=== PATIENT | male | born 1955 | race Caucasian/White ===

== ENCOUNTER 2017-10-15 19:19 | Emergency (ER) | payer OTHER ==
--- NOTE | 2017-10-15 20:18 | EDM.PDOC ---
ED HPI GENERAL MEDICAL PROBLEM - General Chief Complaint: Genitourinary Problem Stated Complaint: NOT ABLE TO VOID Time Seen by Provider: 10/15/17 19:25 Source of Information: Reports: Patient History Limitations: Reports: No Limitations - History of Present Illness INITIAL COMMENTS - FREE TEXT/NARRATIVE: According to patient he has not been able to urinate all day today. Last time h had a good act of urination was yesterday. He feels urge to urinate and when he tries to urinate he can only urinate small quantities frequently and he has urge to urinate all the time today. No fever or chills. No back pain. Pt claims his lower abdomen is very painful and cannot stand straight. No nausea of vomiting. Pt claims that he has had similar episodes once before and he had to be catheterized for few days. and his urologist has placed him on flomax. He always had some dribbling of urine and hesitancy. Onset: Today Onset Date: 10/15/17 Onset Time: 08:00 Location: Reports: Abdomen Quality: Reports: Ache Severity: Severe Improves with: Reports: None Worsens with: Reports: None Associated Symptoms: Denies: Confusion, Chest Pain, Cough, Diaphoresis, Fever/ Chills, Nausea/Vomiting, Rash, Seizure, Shortness of Breath, Syncope, Weakness ED ROS GENERAL - Review of Systems Review Of Systems: See Below Constitutional: Denies: Fever, Chills, Malaise, Weakness HEENT: Denies: Throat Pain, Throat Swelling Respiratory: Denies: Shortness of Breath, Wheezing, Pleuritic Chest Pain, Cough , Sputum Cardiovascular: Denies: Chest Pain, Lightheadedness GI/Abdominal: Denies: Abdominal Pain, Nausea, Vomiting : Reports: Frequency, Urinary Retention. Denies: Dysuria, Flank Pain, Hematuria Musculoskeletal: Denies: Joint Pain, Joint Swelling Skin: Denies: Bruising, Pruritis, Rash ED EXAM, GENERAL - Physical Exam Exam: See Below Exam Limited By: No Limitations General Appearance: Alert, WD/WN, Moderate Distress (from distended bladder) Ears: Normal External Exam, Normal Canal, Hearing Grossly Normal, Normal TMs Ear Exam: Bilateral Ear: Auricle Normal, Canal Normal, TM normal Nose: Normal Inspection, Normal Mucosa, No Blood Throat/Mouth: Normal Inspection, Normal Lips, Normal Teeth, Normal Gums, Normal Oropharynx, Normal Voice, No Airway Compromise Head: Atraumatic, Normocephalic Neck: Normal Inspection, Supple, Non-Tender, Full Range of Motion Respiratory/Chest: No Respiratory Distress, Lungs Clear, Normal Breath Sounds, No Accessory Muscle Use, Chest Non-Tender Cardiovascular: Normal Peripheral Pulses, Regular Rate, Rhythm, No Edema, No Gallop, No JVD, No Murmur, No Rub GI/Abdominal: Distended (There is a tense globular mass extending upwards from the suprapubic area into the umbilicus. the mass is tender and tense. Appears like distended bladder) Course - Vital Signs Text/Narrative:: Pt has acute urinary distension from possible prostatic urethral obstruction. As patient has had pervious episode, I did go ahead and catheterized patient, and did drain about 1150cc or clear urine . Pt did have instant relief in his abdominal discomfort. I have applied a thigh bag on patient. Catheter education given to patient. Advised not to remove the catheter until he is back with his primary care early next week. Continue home meds as before. Departure - Departure Time of Disposition: 20:00 Disposition: Home, Self-Care 01 Condition: Fair Clinical Impression: Acute urinary obstruction - Discharge Information Instructions: Prostatitis, [id number] Referrals: PCP,None [Primary Care Provider] - Forms: ED Department Discharge Additional Instructions: Followup with your primary provider when you return home. - Problem List & Annotations (1) Acute urinary obstruction SNOMED Code(s): 2159235 Code(s): N13.9 - OBSTRUCTIVE AND REFLUX UROPATHY, UNSPECIFIED Status: Acute - Problem List Review Problem List Initiated/Reviewed/Updated: Yes - Assessment/Plan Assessment:: Acute Urinary obstruction Plan: Pt has acute urinary distension from possible prostatic urethral obstruction. As patient has had pervious episode, I did go ahead and catheterized patient, and did drain about 1150cc or clear urine . Pt did have instant relief in his abdominal discomfort. I have applied a thigh bag on patient. Catheter education given to patient. Advised not to remove the catheter until he is back with his primary care early next week. Continue home meds as before.
== END 2017-10-15 20:24 | disposition home or self-care (01) ==
LOC: LB.ED 19:19
DX: N13.9 Obstructive and reflux uropathy, unspecified (principal)
CPT/HCPCS: 51702; 99283-25